=== PATIENT | male | born 1960 ===

== ENCOUNTER 2016-10-27 12:49 | Emergency (ER) | payer OTHER ==
[2016-10-27 12:49] VITALS: BMI 20.5
[2016-10-27 12:57] VITALS: TEMP 97.9; O2SAT 100
[2016-10-27] MEDS ORDERED: Oxycodone/Acetaminophen 5/325 mg Tab PO STA ×2 (13:39→14:34)
[2016-10-27] MEDS ORDERED: Oxycodone/Acetaminophen 5/325 mg Tab ONE ×2 (13:43→14:35)
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
[2016-10-27 15:23] VITALS: BP 118/72; PULSE 88; RESP 18
--- NOTE | 2016-10-27 15:38 | RAD ---
PROCEDURE: Left Hand Radiographs. HISTORY: fall COMPARISON: Comparison made with concurrent radiographs of the left thumb as well as prior radiographs of the left hand and thumb 10/16/2016 FINDINGS: BONES: Re- demonstrated are intra-articular fractures of the proximal and distal phalanges of the left thumb. 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 Mild triscaphe degenerative osteoarthritis. SOFT TISSUES: Normal. OTHER FINDINGS: None. IMPRESSION: Re- demonstrated are intra-articular fractures of the proximal and distal phalanges of the left thumb. Degenerative changes 1st carpal metacarpal articulation with adjacent surrounding heterotopic bone changes. Mild triscaphe DJD.
--- NOTE | 2016-10-27 15:40 | RAD ---
PROCEDURE: Left thumb dated 10/27/2016 PA view of the left hand as well as coned-down oblique and lateral views of the left thumb performed. HISTORY: fall COMPARISON: Comparison made with concurrent radiographs of the left hand and prior radiographs of from 10/16/2016. FINDINGS: BONES: Re- demonstrated are intra-articular fractures of the proximal and distal phalanges of the left thumb. Degenerative changes 1st carpal metacarpal articulation with adjacent surrounding heterotopic bone changes. Mild triscaphe DJD. JOINTS: Normal. No osteoarthritic changes. SOFT TISSUES: Normal. OTHER FINDINGS: None. IMPRESSION: Re- demonstrated are intra-articular fractures of the proximal and distal phalanges of the left thumb. Degenerative changes 1st carpal metacarpal articulation with adjacent surrounding heterotopic bone changes. Mild triscaphe DJD.
== END 2016-10-27 15:26 | disposition home or self-care (01) ==
LOC: C.ER 12:49
DX: S62.522G Displaced fracture of distal phalanx of left thumb, subsequent encounter for fracture with delayed healing (principal); W19.XXXD Unspecified fall, subsequent encounter

== ENCOUNTER 2018-01-14 21:11 | Emergency (ER) | payer SELFPAY ==
[2018-01-14 21:11] VITALS: BMI 20.5
[2018-01-14 21:20] VITALS: RESP 18
--- NOTE | 2018-01-14 23:44 | C.PDOC ---
History Of Present Illness Pt c/o opioid withdrawal. Pt complains that his Methadone clinic is decreasing his Methadone dose too quickly. He c/o N/V/D and generalized aches. Time Seen by Provider: 01/14/18 22:11 Chief Complaint (Nursing): Medical Clearance Past Medical History Reviewed: Historical Data, Nursing Documentation, Vital Signs Vital Signs: Last Vital Signs Temp 99 F 01/14/18 21:16 Pulse 68 01/14/18 22:46 Resp 18 01/14/18 22:46 BP 119/76 01/14/18 22:46 Pulse Ox 96 01/14/18 23:44 - Medical History PMH: Arthritis Family History: States: Unknown Family Hx - Social History Hx Tobacco Use: No Hx Alcohol Use: No Hx Substance Use: No - Immunization History Hx Tetanus Toxoid Vaccination: Yes Hx Influenza Vaccination: Yes Hx Pneumococcal Vaccination: Yes Review Of Systems Except As Marked, All Systems Reviewed And Found Negative. Constitutional: Positive for: Malaise. Negative for: Fever Cardiovascular: Negative for: Chest Pain Respiratory: Negative for: Shortness of Breath Gastrointestinal: Positive for: Nausea, Vomiting, Abdominal Pain, Diarrhea Musculoskeletal: Negative for: Neck Pain Skin: Negative for: Rash Neurological: Negative for: Weakness, Numbness, Seizures Psych: Positive for: Withdrawal. Negative for: Psychosis, Suicidal ideation Physical Exam - Physical Exam Appears: Non-toxic, No Acute Distress Skin: Normal Color, Warm, Dry, No Rash Head: Atraumatic, Normacephalic Eye(s): bilateral: Normal Inspection, PERRL, EOMI Oral Mucosa: Moist Neck: Normal ROM, Supple Cardiovascular: Rhythm Regular Respiratory: Normal Breath Sounds, No Accessory Muscle Use Gastrointestinal/Abdominal: Soft, No Tenderness, No Distention Back: No CVA Tenderness Extremity: Normal ROM Neurological/Psych: Oriented x3, Normal Motor, Normal Sensation ED Course And Treatment O2 Sat by Pulse Oximetry: 96 Pulse Ox Interpretation: Normal Progress Note: Pt feels much better after meds. Reassessment Condition: Improved Disposition Counseled Patient/Family Regarding: Studies Performed, Diagnosis, Need For Followup, Rx Given - Disposition Referrals: [facility] [Outside] Disposition: HOME/ ROUTINE Disposition Time: 23:52 Condition: IMPROVED Additional Instructions: Follow up with your doctor or in the clinic. Return to the ER if you develop worsening of symptoms or if you have any other concerns. Prescriptions: Loperamide [Loperamide HCl] 2 mg PO QID PRN #20 cap PRN Reason: Diarrhea Ondansetron [Zofran] 4 mg PO Q8H PRN #15 tab PRN Reason: Nausea/Vomiting Instructions: Drug Withdrawal (DC) - Clinical Impression Clinical Impression: Opioid withdrawal
[2018-01-15 00:09] VITALS: BP 120/72; PULSE 62; TEMP 98.4; O2SAT 98
== END 2018-01-15 00:20 | disposition home or self-care (01) ==
LOC: SUPCPDRO 21:11 → C.ER 21:11
DX: F11.23 Opioid dependence with withdrawal (principal)

== ENCOUNTER 2018-06-24 05:57 | Observation (INO) | payer OTHER ==
[2018-06-24 05:58] VITALS: BMI 20.5
--- NOTE | 2018-06-24 06:12 | C.PDOC ---
History Of Present Illness Patient presents to the ER with a complaint of chest pain since last night that worsened today. Patient states the pain worsens with movement and deep inspiration. Patient still smokes 5-6 cigarettes a days. He is currently speaking in complete sentences. Denies fever, chills, nausea, or vomiting. Time Seen by Provider: 06/24/18 06:12 Chief Complaint (Nursing): Chest Pain History Per: Patient History/Exam Limitations: no limitations Onset/Duration Of Symptoms: Days Current Symptoms Are (Timing): Still Present Severity: Moderate Pain Scale Rating Of: 4 Associated Symptoms: denies: Nausea, Dyspnea, Diaphoresis, Syncope Exacerbating Factors: Movement, Deep Breathing Alleviating Factors: None Recent travel outside of the [place]: No Past Medical History Reviewed: Historical Data, Nursing Documentation, Vital Signs - Medical History PMH: Arthritis Denies: Chronic Kidney Disease Family History: States: No Known Family Hx - Social History Hx Tobacco Use: No Hx Alcohol Use: No Hx Substance Use: No - Immunization History Hx Tetanus Toxoid Vaccination: Yes Hx Influenza Vaccination: Yes Hx Pneumococcal Vaccination: Yes Review Of Systems Constitutional: Negative for: Fever, Chills Cardiovascular: Positive for: Chest Pain. Negative for: Palpitations Respiratory: Negative for: Cough, Shortness of Breath Gastrointestinal: Negative for: Nausea, Vomiting Neurological: Negative for: Weakness, Numbness Physical Exam - Physical Exam Appears: Non-toxic Skin: Warm, Dry Head: Normacephalic Oral Mucosa: Moist Neck: Trachea Midline, Supple Chest: Symmetrical, Tenderness (Reproducible right sided) Cardiovascular: Rhythm Regular Respiratory: No Rales, Rhonchi (Scattered), No Wheezing Gastrointestinal/Abdominal: Soft, No Tenderness Neurological/Psych: Oriented x3 ED Course And Treatment ECG: Interpreted By Me, Viewed By Me ECG Rhythm: Sinus Rhythm (79), Nonspecific Changes Pulse Ox Interpretation: Normal Progress Note: EKG, blood work, CXR, and urinalysis ordered. Aspirin administered. Disposition Counseled Patient/Family Regarding: Studies Performed, Diagnosis - Disposition Disposition Time: 06:12 Condition: FAIR Forms: [facility] (Lao) - Clinical Impression Clinical Impression: Chest pain - Scribe Statement The provider has reviewed the documentation as recorded by the Scribe Russell Borrego All medical record entries made by the Scribe were at my direction and personally dictated by me. I have reviewed the chart and agree that the record accurately reflects my personal performance of the history, physical exam, medical decision making, and the department course for this patient. I have also personally directed, reviewed, and agree with the discharge instructions and disposition. Physician Patient Turnover Patient Signed Over To: Zeynep Arnold Handoff Comments: pending labs, and disposition
[2018-06-24] MEDS ORDERED: Aspirin 325 mg EC Tablets PO STA (06:13)
[2018-06-24] MEDS ORDERED: Aspirin 325 mg EC Tablets PO ONE (06:22)
[2018-06-24 06:45] LABS: BASO % 0.6 % (0.0-2.0); EOS # 0.5 K/uL (0.0-0.7); EOS % 5.6 % (0.0-4.0); HEMOGLOBIN 13.9 g/dL (12.0-18.0); LYMPH # 1.3 K/uL (1.0-4.3); LYMPH % 15.4 % (20.0-40.0); MEAN CORPUSCULAR HEMOGLOBIN 29.8 pg (27.0-31.0); MEAN CORPUSCULAR HGB CONC 34.2 g/dL (33.0-37.0); MONO # 0.6 K/uL (0.0-0.8); NEUT # 6.1 K/uL (1.8-7.0); NEUT % 71.4 % (50.0-75.0); RBC 4.65 Mil/uL (4.40-5.90); RED CELL DISTRIBUTION WIDTH 13.2 % (11.5-14.5); WHITE BLOOD COUNT 8.5 K/uL (4.8-10.8)
[2018-06-24 06:58] LABS: ALB/GLOB RATIO 1.3 (1.0-2.1); ALBUMIN 3.9 g/dL (3.5-5.0); ALT/SGPT 32 U/L (21-72); AST/SGOT 32 U/L (17-59); BLOOD UREA NITROGEN 14 mg/dL (9-20); CALCIUM 8.8 mg/dl (8.6-10.4); GFR NON-AFRICAN AMERICAN > 60
[2018-06-24 07:15] LABS: URINE BACTERIA RARE (<OCC); URINE BILIRUBIN NEGATIVE (NEGATIVE); URINE BLOOD NEGATIVE (NEGATIVE); URINE CLARITY Clear (Clear); URINE COLOR Yellow (YELLOW); URINE GLUCOSE (UA) NORMAL (Normal); URINE LEUKOCYTE ESTERASE NEG Leu/uL (Negative); URINE PROTEIN NEGATIVE (NEGATIVE)
[2018-06-24 08:02] LABS: BARBITURATES, UR NEGATIVE (NEGATIVE); BENZODIAZEPINES, UR NEGATIVE (NEGATIVE); OPIATES, UR NEGATIVE (NEGATIVE); PHENCYCLIDINE, UR NEGATIVE (NEGATIVE)
[2018-06-24] MEDS ORDERED: Nitroglycerin 2% Ointment Foilpak UD TOP STA (08:44)
--- NOTE | 2018-06-24 08:54 | RAD ---
Date of service: 06/24/2018 HISTORY: chest pain COMPARISON: None available. FINDINGS: LUNGS: Mild venous congestion. Bilateral hilar prominence. PLEURA: No significant pleural effusion identified, no pneumothorax apparent. CARDIOVASCULAR: No aortic atherosclerotic calcification present. Tortuous ectatic aorta. Mild cardiomegaly. No pulmonary vascular congestion. OSSEOUS STRUCTURES: No significant abnormalities. VISUALIZED UPPER ABDOMEN: Normal. OTHER FINDINGS: None. IMPRESSION: Mild venous congestion. Bilateral hilar prominence.
[2018-06-24] MEDS ORDERED: Nitroglycerin 2% Ointment Foilpak UD TOP ONE (08:59)
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
[2018-06-24] MEDS ORDERED: Methadone 40 mg Tab PO ONE ×2 (15:30→17:15)
[2018-06-24 17:32] VITALS: RESP 20; TEMP 97.9
[2018-06-24 18:14] LABS: CK-MB 1.08 ng/mL (0.0-3.38)
[2018-06-24 23:30] LABS: CK-MB 0.98 ng/mL (0.0-3.38)
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
[2018-06-25 07:49] LABS: BASO % 0.6 % (0.0-2.0); EOS # 0.4 K/uL (0.0-0.7); EOS % 5.2 % (0.0-4.0); HEMOGLOBIN 13.8 g/dL (12.0-18.0); LYMPH # 1.3 K/uL (1.0-4.3); LYMPH % 17.2 % (20.0-40.0); MEAN CELL VOLUME 86.7 fL (80.0-94.0); MEAN CORPUSCULAR HEMOGLOBIN 30.1 pg (27.0-31.0); MEAN CORPUSCULAR HGB CONC 34.7 g/dL (33.0-37.0); MONO # 0.6 K/uL (0.0-0.8); MONO % 8.4 % (0.0-10.0); NEUT % 68.6 % (50.0-75.0); NRBC % 0.1 % (0.0-2.0); RBC 4.58 Mil/uL (4.40-5.90); RED CELL DISTRIBUTION WIDTH 13.3 % (11.5-14.5); WHITE BLOOD COUNT 7.3 K/uL (4.8-10.8)
[2018-06-25 07:58] LABS: ALB/GLOB RATIO 1.2 (1.0-2.1); ALBUMIN 3.5 g/dL (3.5-5.0); ALT/SGPT 34 U/L (21-72); AST/SGOT 29 U/L (17-59); BLOOD UREA NITROGEN 12 mg/dL (9-20); CALCIUM 8.6 mg/dl (8.6-10.4); GFR NON-AFRICAN AMERICAN > 60
[2018-06-25 08:00] VITALS: BP 119/76; PULSE 64; O2SAT 96
[2018-06-25] MEDS ORDERED: Influenza Vaccine 60 MCG/0.5 ML SYR (3 yr & up) IM ONE (10:15)
--- NOTE | 2018-06-25 12:27 | CARD ---
APPROVED REPORT Date of service: 06/24/2018 EKG Measurement Heart [id number] [place] [id number] [id number] <Conclusion> Normal sinus rhythm Nonspecific T wave abnormality Abnormal ECG
--- NOTE | 2018-06-25 12:28 | CARD ---
APPROVED REPORT Date of service: 06/24/2018 EKG Measurement Heart [id number] [place] 152P8 [id number] <Conclusion> Normal sinus rhythm Left axis deviation Abnormal ECG
--- NOTE | 2018-06-25 12:28 | CARD ---
APPROVED REPORT Date of service: 06/24/2018 EKG Measurement Heart [id number] [place] 180P38 [id number] <Conclusion> Normal sinus rhythm Normal ECG
--- NOTE | 2018-06-25 15:54 | VASCLAB ---
Date of service: 06/24/2018 PROCEDURE: Lower Extremity Venous Duplex Exam. HISTORY: Leg swelling, SOB PRIORS: None. TECHNIQUE: Bilateral common femoral, femoral, popliteal and posterior tibial, peroneal and great saphenous veins were evaluated. Flow was assessed with color Doppler, compressibility, assessment of phasic flow and augmentation response. Report prepared by CRISTI Randolph FINDINGS: RIGHT: 1. Common Femoral Vein: 1.1. Compressibility - Fully compressible: Thrombus - None : Flow - Phasic: Augmentation -Normal: Reflux - None. 2. Femoral Vein: 2.1. Compressibility - Fully compressible: Thrombus - None : Flow - Phasic: Augmentation -Normal: Reflux - None. 3. Popliteal Vein: 3.1. Compressibility - Fully compressible: Thrombus - None : Flow - Phasic: Augmentation -Normal: Reflux - None. 4. Posterior Tibial Vein: 4.1. Compressibility - Fully compressible: Thrombus - None: Flow - Phasic: Augmentation -Normal: Reflux - None. 5. Peroneal Vein: 5.1. Compressibility - Fully compressible: Thrombus - None: Flow - Phasic: Augmentation -Normal: Reflux - None. 6. Great Saphenous Vein: 6.1. Compressibility - Fully compressible: Thrombus - None: Flow - Phasic: Augmentation - Normal: Reflux - Severe >4.08s LEFT: 1. Common Femoral Vein: 1.1. Compressibility - Fully compressible: Thrombus - None: Flow - Phasic: Augmentation -Normal: Reflux - None. 2. Femoral Vein: 2.1. Compressibility - Fully compressible: Thrombus - None: Flow - Phasic: Augmentation -Normal: Reflux - None. 3. Popliteal Vein: 3.1. Compressibility - Fully compressible: Thrombus - None : Flow - Phasic: Augmentation -Normal: Reflux - None. 4. Posterior Tibial Vein: 4.1. Compressibility - Fully compressible: Thrombus - None: Flow - Phasic: Augmentation -Normal: Reflux - None. 5. Peroneal Vein: 5.1. Compressibility - Fully compressible: Thrombus - None: Flow - Phasic: Augmentation -Normal: Reflux - None. 6. Great Saphenous Vein: 6.1. Compressibility - Fully compressible: Thrombus - None: Flow - Phasic: Augmentation - Normal: Reflux - None. OTHER FINDINGS: Right: None significant. Left: None significant. IMPRESSION: Right: No evidence of deep or superficial vein thrombosis of the right lower extremity. Valvular incompetence noted of the right great saphenous vein. Left: No evidence of deep or superficial vein thrombosis of the left lower extremity. Normal valve function noted of the left side.
== END 2018-06-25 10:57 | disposition home or self-care (01) ==
LOC: C.ER 05:57 → C.9E 09:04 → C.5S 16:11
PROVIDERS: ADMIT Hospitalist; ATTEND Hospitalist
DX: R07.9 Chest pain, unspecified (principal); F17.200 Nicotine dependence, unspecified, uncomplicated; F11.20 Opioid dependence, uncomplicated; Z82.0 Family history of epilepsy and other diseases of the nervous system; Z82.49 Family history of ischemic heart disease and other diseases of the circulatory system; Z83.3 Family history of diabetes mellitus; Z87.442 Personal history of urinary calculi
CPT/HCPCS: 36415; 71045; 80053; 80324; 80345; 80346; 80349; 80353; 80358; 80361; 81001; 83735; 83992; 84100; 84484; 85025; 90471; 90674; 93005; 93970; 96374; 99285; G0378; J1885

== ENCOUNTER 2018-07-08 07:20 | Emergency (ER) | payer OTHER ==
[2018-07-08 07:20] VITALS: BMI 20.5
[2018-07-08 07:32] VITALS: O2SAT 96
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
[2018-07-08 08:56] VITALS: BP 132/75; PULSE 80; RESP 20; TEMP 98.2
== END 2018-07-08 08:57 | disposition home or self-care (01) ==
LOC: C.ER 07:20
DX: M25.461 Effusion, right knee (principal)